=== PATIENT | male | born 1980 | race African-American/Black ===

== ENCOUNTER 2021-06-14 00:03 | Emergency (ER) | payer OTHER ==
[~2021-06-14] VITALS: Ht 172.7 cm; Wt 72.8 kg
[2021-06-14] MEDS ORDERED: DIPH25CA58 PO (00:13)
--- NOTE | 2021-06-14 00:16 | PHYS DOC ---
General Adult EDM: Chief Complaint: ALLERGIC REACTION HPI: HPI: " I am having an allergic reaction.. I ve had them before.. " " My lips are swelling.. my eye lids.. never have...figured out what causes it.. 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 Patient cannot relate the triggering event for the allergic reaction but he has had an other occasions. Patient advises he does not get treated the edema and rash continues to develop. Patient has had hospitalization when the allergic reaction is not treated and have become severe. Patient denies any new foods, soaps, personal hygiene, meds , household products or animals. Patient normally follows with [facility]. Review of Systems: Review of Systems: Constitutional: Denies fever or chills Eyes: Denies change in visual acuity. Complains eyes are starting to swell shut HENT: Complains of nasal congestion and itchy sore throat Respiratory: Complains of cough and wheezing Cardiovascular: Denies chest pain or edema GI: Denies abdominal pain, nausea, vomiting, bloody stools or diarrhea : Denies dysuria Musculoskeletal: Denies back pain or joint pain Integument: Complains of itchy skin Neurologic: Denies headache, focal weakness or sensory changes Endocrine: Denies polyuria or polydipsia Lymphatic: Denies swollen glands Psychiatric: Denies depression or anxiety Family History: Family History: Noncontributory to presentation Current Medications: Current Meds: See nursing for home meds Allergies: Allergies: Allergies Coded Allergies Type Severity Reaction Last Updated Verified No Known Drug Allergies 06/14/21 No Physical Exam: PE: Constitutional: Well developed, well nourished, in acute distress, non-toxic appearance. [] HENT: Normocephalic, atraumatic, bilateral external ears normal, oropharynx moist, no oral exudates, nose swollen turbinates clear rhinorrhea. Swollen lips Eyes: PERRLA, EOMI, conjunctiva normal, no discharge. Periorbital swelling Neck: Normal range of motion, no tenderness, supple, no stridor. [] Cardiovascular:Heart rate regular rhythm, no murmur [] Lungs & Thorax: Bilateral breath sounds clear to auscultation [] Abdomen: Bowel sounds normal, soft, no tenderness, no masses, no pulsatile masses. [] Skin: Warm, dry, mild itching, mild erythema rash. [] Back: No tenderness, no CVA tenderness. [] Extremities: No tenderness, no cyanosis, no clubbing, ROM intact, no edema. [] Neurologic: Alert and oriented X 3, normal motor function, normal sensory function, no focal deficits noted. [] Psychologic: Affect anxious, judgement normal, mood normal. [] EKG: EKG: [] Radiology/Procedures: Radiology/Procedures: [] Heart Score: C/O Chest Pain: No Risk Factors: Risk Factors: DM, Current or recent (<one month) smoker, HTN, HLP, family history of CAD, obesity. Risk Scores: Score 0 - 3: 2.5% MACE over next 6 weeks - Discharge Home Score 4 - 6: 20.3% MACE over next 6 weeks - Admit for Clinical Observation Score 7 - 10: 72.7% MACE over next 6 weeks - Early Invasive Strategies Course & Med Decision Making: Course & Med Decision Making Pertinent Labs and Imaging studies reviewed. (See chart for details) Patient received Solu-Medrol 125, Ventolin treatments, Pepcid 20, Benadryl 50, and milk of mag 30. Patient was observed for 2 hours and had marked clearing of symptoms. Requesting discharge. Patient tries identify any agent responsible for his allergic reaction. Patient to continue use MDI 2 puffs 4 times a day. Take Pepcid 20 mg twice a day for the next 10 days. Patient take prednisone 50 mg daily for 5 days. Patient follow-up primary care. Patient return if any concerns. Impression: 1. Acute allergic reaction-etiology is unclear [] Dragon Disclaimer: [place] Disclaimer: This electronic medical record was generated, in whole or in part, using a voice recognition dictation system. Departure Departure: Referrals: PCP,UNKNOWN (PCP) Scripts Famotidine (PEPCID) 20 Mg Tablet 20 MG PO BID for allergic for 10 Days, #20 TAB Prov: CARISSA GARRIDO MD 06/14/21 Prednisone (PREDNISONE) 50 Mg Tablet 50 MG PO DAILY for allergic for 5 Days, #5 TAB Prov: CARISSA GARRIDO MD 06/14/21 Dannielle Disclaimer This chart was dictated in whole or in part using Voice Recognition software in a busy, high-work load, and often noisy Emergency Department environment. It may contain unintended and wholly unrecognized errors or omissions. CARISSA GARRIDO MD Jun 14, 2021 00:16
[2021-06-14] MEDS ORDERED: FAMO-63 PO (00:21)
[2021-06-14] MEDS ORDERED: PRED50TA PO (00:21)
[2021-06-14] MEDS ORDERED: diphenhydrAMINE 50 MG/ML VIAL IVP ONE (00:30)
[2021-06-14] MEDS ORDERED: methylPREDNISolone SOD SUCC PF 125 MG/2 ML VIAL. IV ONE (00:30)
[2021-06-14] MEDS ORDERED: FAMOTIDINE 20 MG/2 ML VIAL IVP ONE (00:30)
[2021-06-14] MEDS ORDERED: IV RINGERS SOLUTION,LACTATED 1,000 ML IV ONE (00:30)
[2021-06-14] MEDS ORDERED: MAGNESIUM HYDROXIDE 2,400 MG/30 ML ORAL.SUSP. PO ONE (00:30)
[2021-06-14] MEDS ORDERED: ALBUTEROL SULFATE 8GM INHALER. INH ONE (00:30)
[2021-06-14 02:10] VITALS: BP 126/71
== END 2021-06-14 02:15 | disposition home or self-care (01) ==
LOC: ER 00:03
DX: T78.40XA Allergy, unspecified, initial encounter (principal); X58.XXXA Exposure to other specified factors, initial encounter
CPT/HCPCS: 94640; 96361; 96374; 96375; 99284; J1200; J2930; J3490; J7120; 94664

== ENCOUNTER 2021-07-10 21:02 | Emergency (ER) | payer OTHER ==
[~2021-07-10 21:02] MED LIST: DIPH25CA58 PO; FAMO-63 PO; PRED50TA PO
--- NOTE | 2021-07-10 21:53 | PHYS DOC ---
Past History Past Surgical History: No Surgical History (LAVONNE LI APRN) Alcohol Use: Occasionally (LAVONNE LI APRN) General Adult EDM: Chief Complaint: GROIN PAIN HPI: HPI: Patient is a 40-year-old male presents with pain to the tip of his penis. Patient states "I have been masturbating a lot and its sore". "I have not had an erection in a week". Patient states that the skin feels sore. Denies anything into his urethra or known trauma to his penis. Denies pain with u rination, abnormal discharge. No other health problems. (LAVONNE LI APRN) Review of Systems: Review of Systems: ROS At least 10 ROS systems have been reviewed and are negative except as documented in the HPI. General: Negative except as outlined in HPI above. Skin: Negative except as outlined in HPI above. HEENT: Negative except as outlined in HPI above. Neck: Negative except as outlined in HPI above. Respiratory: Negative except as outlined in HPI above.. Cardiovascular: Negative except as outlined in HPI above. Abdomen: Negative except as outlined in HPI above. : Negative except as outlined in HPI above. Back/MSK: Negative except as outlined in HPI above. Neuro: Negative except as outlined in HPI above. Psych: Negative except as outlined in HPI above. (LAVONNE LI APRN) Allergies: Allergies: Allergies Coded Allergies Type Severity Reaction Last Updated Verified No Known Drug Allergies 06/14/21 No (LAVONNE LI APRN) Physical Exam: PE: Constitutional: Well developed, well nourished, no acute distress, non-toxic appearance. [] HENT: Normocephalic, bilateral external ears normal, oropharynx moist, no oral exudates, nose normal. [] Eyes: PERRLA, conjunctiva normal, no discharge. [] Neck: Normal range of motion, no tenderness, supple, no stridor. [] Cardiovascular:Heart rate regular rhythm, no murmur [] Lungs & Thorax: Bilateral breath sounds clear to auscultation [] Abdomen: Bowel sounds normal, soft, no tenderness, no masses, no pulsatile masses. [] Skin: Redness to top of penis, no signs of trauma Back: No tenderness, no CVA tenderness. [] Extremities: No tenderness, no cyanosis, no clubbing, ROM intact, no edema. [] Neurologic: Alert and oriented X 3, normal motor function, normal sensory function, no focal deficits noted. [] Psychologic: Affect normal, judgement normal, mood normal. [] (LAVONNE LI APRN) EKG: EKG: [] (LAVONNE LI APRN) Radiology/Procedures: Radiology/Procedures: [] (LAVONNE LI APRN) Heart Score: C/O Chest Pain: No Risk Factors: Risk Factors: DM, Current or recent (<one month) smoker, HTN, HLP, family history of CAD, obesity. Risk Scores: Score 0 - 3: 2.5% MACE over next 6 weeks - Discharge Home Score 4 - 6: 20.3% MACE over next 6 weeks - Admit for Clinical Observation Score 7 - 10: 72.7% MACE over next 6 weeks - Early Invasive Strategies (LAVONNE LI APRN) Course & Med Decision Making: Course & Med Decision Making Pertinent Labs and Imaging studies reviewed. (See chart for details) [] 40-year-old male presents with pain to the tip of his penis. \\Patient is reporting soreness to the tip of his penis. Some redness is noted. No signs of trauma. UA ordered. UA is positive for nitrates. Patient given IM Rocephin. Urine will be sent for culture. Patient given follow-up info for urology. Advised patient to refrain from m asturbation for 2 weeks. (LAVONNE LI APRN) Dragon Disclaimer: Dragon Disclaimer: This electronic medical record was generated, in whole or in part, using a voice recognition dictation system. (LAVONNE LI APRN) Departure Departure: Impression: Primary Impression: Penile abrasion Qualified Codes: S30.812A - Abrasion of penis, initial encounter Additional Impression: UTI (urinary tract infection) Qualified Codes: N39.0 - Urinary tract infection, site not specified Disposition: 01 HOME / SELF CARE / HOMELESS Condition: STABLE Referrals: PCP,UNKNOWN (PCP) Patient Instructions: Urinary Tract Infection, [id number] Additional Instructions: You are seen in the emergency room for pain to your penis. We collected a urine which was positive for infection. You were given an IM injection to treat. We will send your urine off for culture. You will be notified if there is any other infection. Please follow-up with urology for further management. I have attached their phone number for you to contact. Please refrain from masturbation for 2 weeks. EMERGENCY DEPARTMENT GENERAL DISCHARGE INSTRUCTIONS Thank you for coming to [facility] (ED) today and trusting us with you care. We trust that you had a positivie experience in our Emergency Department. If you wish to speak to the department management, you may call the director at [phone]. YOUR FOLLOW UP INSTRUCTIONS ARE FOLLOWS: 1. Do you have a private Doctor? If you do not have a private doctor, please ask for a resource list of physicians or clinics that may be able to assist you with follow up care. 2. The Emergency Physician has interpreted your x-rays. The X-Ray specialist will also review them. If there is a change in the findings, you will be notified in 48 hours when at all possible. 3. A lab test or culture has been done, your results will be reviewed and you will be notified if you need a change in treatment. ADDITIONAL INSTRUCTIONS AND INFORMATION: 1. Your care today has been supervised by a physician who is specially trained in emergency care. Many problems require more than one evaluation for a complete diagnosis and treatment. We recommend that you schedule your follow up appointment as recommended to ensure complete treatment of you illness or injury. If you are unable to obtain follow up care and continue to have a problem, or if your condition worsens, we recommend that you return to the ED. 2. We are not able to safely determine your condition over the phone nor are we able to give sound medical advice over the phone. For these safety reasons, if you call for medical advice we will ask you to come to the ED for further evaluation. 3. If you have any questions regarding these discharge instructions please call the ED at [phone]. SAFETY INFORMATION: In the interest of safety, wellness, and injury prevention; we encourage you to wear your sealbelt, if you smoke; quite smoking, and we encourage family to use a protective helmet for bicycling and other sporting events that present an increased risk for head injury. IF YOUR SYMPTOMS WORSEN OR NEW SYMPTOMS DEVELOP, OR YOU HAVE CONCERNS ABOUT YOUR CONDITION; OR IF YOUR CONDITION WORSENS WHILE YOU ARE WAITING FOR YOUR FOLLOW UP APPOINT MENT; EITHER CONTACT YOUR PRIMARY CARE DOCTOR, THE PHYSICIAN WHOSE NAME AND NUMBER YOU WERE GIVEN, OR RETURN TO THE ED IMMEDIATELY. Attending Signature Attending Signature I have participated in the care of this patient and I have reviewed and agree with all pertinent clinical information above including history, exam, and recommendations. (CARISSA GARRIDO MD) Dragon Disclaimer This chart was dictated in whole or in part using Voice Recognition software in a busy, high-work load, and often noisy Emergency Department environment. It may contain unintended and wholly unrecognized errors or omissions. (CARISSA GARRIDO MD) LAVONNE LI CAPACITY ANALYST Jul 10, 2021 21:53 CARISSA GARRIDO MD Jul 12, 2021 07:19
[2021-07-10 22:17] LABS: CLARITY,URINE CLEAR; COLOR,URINE YELLOW; GLUCOSE,URINE NEG (NEG)
[2021-07-10 22:18] LABS: BACTERIA,URINE 0 /HPF (0-FEW); NITRITE,URINE POS (NEG); SQUAMOUS EPITHELIAL CELL,UR OCC /LPF; UROBILINOGEN,URINE 0.2 mg/dL (0.2 mg/dL); WBC,URINE OCC /HPF (0-4)
[2021-07-10] MEDS ORDERED: cefTRIAXone IM 1 GM VIAL IM ONE (22:45)
[2021-07-10] MEDS ORDERED: LIDOCAINE 1% Multi-Dose 20 ML VIAL. ONE (23:05)
== END 2021-07-10 23:34 | disposition home or self-care (01) ==
LOC: ER 21:02
DX: S30.812A Abrasion of penis, initial encounter (principal); N39.0 Urinary tract infection, site not specified; X58.XXXA Exposure to other specified factors, initial encounter; Y93.89 Activity, other specified; Y92.89 Other specified places as the place of occurrence of the external cause; Y99.8 Other external cause status
CPT/HCPCS: 36415; 81001; 87086; 87491; 87591; 96372; 99283; J0696